=== PATIENT | female | born 1965 | race Caucasian/White ===

== ENCOUNTER 2017-02-18 05:38 | Day surgery (SDC) | payer BC ==
[~2017-02-18 05:38] MED LIST: CELEXA10 PO; NEUR100 PO; TRICOR145 PO
== END 2017-02-18 23:59 | disposition home or self-care (01) ==
LOC: SDC 05:38
PROVIDERS: Orthopaedic Surgery
PROC: 3E0R3BZ Introduction of Anesthetic Agent into Spinal Canal, Percutaneous Approach (ICD-10-PCS; 2017-02-18)
PROC: B01BYZZ Fluoroscopy of Spinal Cord using Other Contrast (ICD-10-PCS; 2017-02-18)
PROC: 3E0R33Z Introduction of Anti-inflammatory into Spinal Canal, Percutaneous Approach (ICD-10-PCS; principal; 2017-02-18 07:45)
DX: M51.27 Other intervertebral disc displacement, lumbosacral region (principal); Z88.2 Allergy status to sulfonamides; E78.00 Pure hypercholesterolemia, unspecified; Z87.442 Personal history of urinary calculi; Z98.890 Other specified postprocedural states
CPT/HCPCS: J2250; J3010; Q9967